=== PATIENT | female | born 1985 | race African-American/Black ===

== ENCOUNTER 2020-09-10 18:57 | Emergency (ER) | payer SELFPAY ==
[~2020-09-10] VITALS: Ht 172.7 cm; Wt 109.0 kg
[2020-09-10] MEDS ORDERED: ACETAMINOPHEN 325MG TABLET PO STA (19:21)
[2020-09-10] MEDS ORDERED: IBUPROFEN 600MG TABLET PO STA (19:21)
[2020-09-10 20:45] VITALS: BP 155/98
[2020-09-10] MEDS ORDERED: CYCL5TAB MT (20:50)
== END 2020-09-10 20:55 | disposition home or self-care (01) ==
LOC: ER 18:57
DX: M79.622 Pain in left upper arm (principal)
CPT/HCPCS: 73030; 93005; 99283